=== PATIENT | female | born 1995 | race Caucasian/White ===

== ENCOUNTER 2016-09-12 21:44 | Emergency (ER) | payer BC, OTHER ==
[~2016-09-12] VITALS: Ht 162.6 cm; Wt 70.0 kg
[~2016-09-12 21:44] MED LIST: MULT-506 PO
[2016-09-12 21:48] VITALS: TEMP 36.5; Ht 162.6 cm; Wt 70.0 kg
[2016-09-12] MEDS ORDERED: PROCHLORPERAZINE 5 MG/ML 2 ML VIAL IV STA (23:11)
[2016-09-12] MEDS ORDERED: KETOROLAC TROMETHAMINE 30 MG/ML VIAL IV STA (23:11)
[2016-09-12] MEDS ORDERED: DiphenhydrAMINE HCL 50 MG/ML VIAL IV STA (23:11)
[2016-09-12] MEDS ORDERED: SODIUM CHLORIDE 0.9% 1000ML 1,000 ML IV ONE (23:15)
--- NOTE | 2016-09-12 23:21 | EMERGENCY ROOM VISIT NOTE ---
History Report prepared by Alesha: Brigette Lopez Under the Supervision of: Dr. Reese Rosales M.D. First contact with patient: 23:07 Chief Complaint: HEADACHE Stated Complaint: MAJOR MIGRAINE TO NECK History of Present Illness The patient is a 20 year old female who presents to the Emergency Room with complaints of a worsening headache for the past 6 hours. She has been experiencing headaches like this for the past 10 months, since the of her youngest child. She goes to a chiropractor 3 times/week and states that this is the only thing that keeps her headaches under control. The patient missed her chiropractor appointment today and thinks that is what triggered her headache. Her pain is mostly up the back of her neck and into the base of her skull. She has not taken any medication for pain because she is currently . Light exacerbates her pain. The patient denies fever, chills, abdominal pain, diarrhea, and urinary symptoms. She has nausea and had 1 episode of vomiting [employer]. The patient rates her current pain as a 10/10 in severity. Source of History: patient Onset: 6 hours [employer] Position: head Symptom Intensity: 10/10 Timing: worsening Modifying Factors (Worsening): other (light) Modifying Factors (Relieving): other (chiropractor) Associated Symptoms: + nausea, + neck pain, + vomiting, No abdominal pain, No chills, No fevers, No urinary symptoms Review of Systems All systems have been listed, reviewed, and are negative other than those previously mentioned. Please see Additional Medical History Sheet. Past Medical & Surgical Medical Problems: (1) Abrasion of knee, left (2) FX MID/PRX PHAL, HAND-CL (3) MRSA (methicillin resistant staph aureus) culture positive (4) (5) Rash and nonspecific skin eruption Family History No pertinent history stated. Social History Smoking Status: Current Every Day Smoker Alcohol Use: none Drug Use: none Marital Status: single Housing Status: lives with family Occupation Status: student Current/Historical Medications No Active Prescriptions or Reported Meds Allergies Coded Allergies: Latex (Verified Allergy, Mild, Rash, 09/12/16) Povidone Iodine (Verified Allergy, Mild, rash, swelling, red, 09/12/16) Shellfish (Unverified Allergy, Unknown, UNKNOWN, 09/12/16) Shellfish Allergy (Unverified Allergy, Unknown, UNKNOWN, 09/12/16) Physical Exam Vital Signs Date Time Temp Pulse Resp B/P Pulse Ox O2 Delivery O2 Flow Rate FiO2 09/12/16 23:34 53 20 112/71 100 Room Air 09/12/16 21:48 36.5 74 18 135/84 100 Room Air Physical Exam GENERAL: Patient awake, alert, oriented x 3. Patient follows commands. Patient does not appear toxic. Patient is adequately hydrated and well- nourished. The patient is in moderate to severe distress, photophobic. SKIN: No erythema, pallor, cyanosis or rash HEENT: Normal head, the patient has some tenderness to the base of her skull, photophobia, pupils equal, reactive to light and accommodation. Ears normal. Oral cavity and posterior pharynx appear normal. Neck: Without adenopathy, no neck vein distention. LUNGS: Clear to auscultation. No wheezes, no rales, no rhonchi. HEART: No murmurs. No gallops. No rubs ABDOMEN: Soft, nontender. EXTREMITIES: No signs of trauma or infection. NEUROLOGIC: Cranial nerves II-XII within normal limits. No gross motor sensory function deficits. Medical Decision & Procedures Medications Administered Medications (Trade) Dose Ordered Sig/Jennifer Route Start Time Stop Time Status Last Admin Dose Admin Ketorolac Tromethamine (Toradol Inj) 30 mg NOW STAT IV 09/12/16 23:11 09/12/16 23:14 DC 09/12/16 23:26 30 MG Diphenhydramine HCl (Benadryl Inj) 25 mg NOW STAT IV 09/12/16 23:11 09/12/16 23:14 DC 09/12/16 23:27 25 MG Prochlorperazine Edisylate 10 mg 10 mg NOW STAT IV 09/12/16 23:11 09/12/16 23:14 DC 09/12/16 23:28 10 MG Sodium Chloride (Nss 1000ml) 1,000 ml @ 1,000 mls/hr Q1H ONCE IV 09/12/16 23:15 09/13/16 00:14 DC 09/12/16 23:26 1,000 MLS/HR ED Course 2307: Past medical records reviewed. The patient was evaluated in room C12B. A complete history and physical examination was performed. 2311: Compazine 10 mg IV, Benadryl 25 mg IV, Toradol 30 mg IV 2315: NSS 1000 ml @ 1000 mls/hr IV 0032: I reassessed the patient at this time. She is feeling better and resting comfortably. I discussed the results and treatment plan with the patient. I answered all pertaining questions that she had. She expressed understanding and verbalized agreement. The patient will be discharged home. Medical Decision Differential diagnoses includes migraine headache, cluster headache, occipital headache, tension headache, encephalitis, meningitis. The patient's pain is most consistent with a tension headache. Patient received IV Toradol, Benadryl and Compazine plus IV fluids. Patient did have an episode of akathisia. That resolved on its own. Prior to discharge patient headache had almost completely resolved. The patient was encouraged to go home and go to sleep. Impression Primary Impression: Tension headache Additional Impression: Akathisia Scribe Attestation The scribe's documentation has been prepared under my direction and personally reviewed by me in its entirety. I confirm that the note above accurately reflects all work, treatment, procedures, and medical decision making performed by me. Departure Information Dispostion Home / Self-Care Prescriptions No Active Prescriptions or Reported Meds Referrals Carlos Osorio M.D. (PCP) Forms HOME CARE DOCUMENTATION FORM, IMPORTANT VISIT INFORMATION Patient Instructions ED Headache Tension, My [facility] Additional Instructions Follow-up with your family physician. Problem Qualifiers
[2016-09-13 01:08] VITALS: BP 107/67; PULSE 68; O2SAT 100
== END 2016-09-13 01:10 | disposition home or self-care (01) ==
LOC: C.EDB 21:45 → C.EDC 09-13 01:10
DX: G44.209 Tension-type headache, unspecified, not intractable (principal); G25.71 Drug induced akathisia; F17.200 Nicotine dependence, unspecified, uncomplicated; Z87.81 Personal history of (healed) traumatic fracture; Z86.14 Personal history of Methicillin resistant Staphylococcus aureus infection; Z91.040 Latex allergy status; Z91.018 Allergy to other foods; Z91.09 Other allergy status, other than to drugs and biological substances

== ENCOUNTER 2017-02-03 15:15 | Emergency (ER) | payer OTHER ==
[~2017-02-03] VITALS: Ht 162.6 cm; Wt 64.4 kg
[2017-02-03 15:25] VITALS: TEMP 37.2; Ht 162.6 cm; Wt 64.4 kg
--- NOTE | 2017-02-03 15:51 | DIAGNOSTIC IMAGING REPORT ---
L ANKLE MIN 3 VIEWS ROUTINE CLINICAL HISTORY: in d pod waiting room pain COMPARISON: None. DISCUSSION: The bones and joint spaces appear intact. There is no evidence of fracture, dislocation or bony disease. Mild degenerative change subtalar joint. IMPRESSION: Mild degenerative change. No acute bony abnormality. The above report was generated using voice recognition software. It may contain grammatical, syntax or spelling errors. Electronically signed by: Robert Sherman M.D. 02/03/2017 3:49 PM Dictated Date/Time: 02/03/2017 3:49 PM
[2017-02-03] MEDS ORDERED: TYLOTC500 PO (16:03)
[2017-02-03] MEDS ORDERED: HYDR-5688 PO (16:37)
--- NOTE | 2017-02-03 16:42 | EMERGENCY ROOM VISIT NOTE ---
History First contact with patient: 16:01 Chief Complaint: ANKLE PAIN Stated Complaint: SEVERE PAIN IN LEFT ANKLE History of Present Illness The patient is a 21 year old female who presents to the Emergency Room with complaints of left ankle pain for 4 days. The patient is having difficulty putting weight on the foot. She denies any significant injury. The pain is on the lateral aspect of the ankle over the lateral malleolus. she has tried Tylenol with minimal relief of the pain. She does report a history of stress fractures of the outside of her ankle. 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 Review of Systems 6 system review negative. Please see pertinent positives in the history of present illness section. Past Medical/Surgical History Medical Problems: (1) Abrasion of knee, left (2) FX MID/PRX PHAL, HAND-CL (3) MRSA (methicillin resistant staph aureus) culture positive (4) (5) Rash and nonspecific skin eruption Social History Smoking Status: Current Every Day Smoker Alcohol Use: none Drug Use: none Marital Status: single Housing Status: lives with family Occupation Status: student Current/Historical Medications Scheduled PRN Acetaminophen (Tylenol), 1,000 MG PO Q6 PRN for Pain Hydrocodone/Acetaminophen 5MG/325MG (Hilbert 5MG/325MG), 1-2 TABLET PO Q4H PRN for Pain Physical Exam Vital Signs Date Time Temp Pulse Resp B/P (MAP) Pulse Ox O2 Delivery O2 Flow Rate FiO2 02/03/17 17:09 90 18 120/68 100 02/03/17 15:25 37.2 90 18 121/73 98 Room Air Physical Exam VITALS: Vitals are noted on the nurse's note and reviewed by myself. Vital signs stable. GENERAL: 21-year-old female, in no acute distress, nondiaphoretic, well- developed well-nourished. SKIN: The skin was without rashes, erythema, edema, or bruising. HEAD: Normocephalic atraumatic. MUSCULOSKELETAL: LLE: Tenderness to palpation over the lateral malleolus. No tenderness elicited over the proximal tibia or fibula. No tenderness over the fifth metatarsal. Capillary refills less than 2 seconds. Flexion and extension of the foot are intact, but this elicits pain. NEURO: Patient was alert and oriented to person place and time. Normal sensation to touch. No focal neurological deficits. Medical Decision & Procedures ER Provider Diagnostic Interpretation: L ANKLE MIN 3 VIEWS ROUTINE CLINICAL HISTORY: in d pod waiting room pain COMPARISON: None. DISCUSSION: The bones and joint spaces appear intact. There is no evidence of fracture, dislocation or bony disease. Mild degenerative change subtalar joint. IMPRESSION: Mild degenerative change. No acute bony abnormality. The above report was generated using voice recognition software. It may contain grammatical, syntax or spelling errors. Electronically signed by: Robert Sherman M.D. 02/03/2017 3:49 PM Dictated Date/Time: 02/03/2017 3:49 PM The status of this report is Signed. Draft = Not yet reviewed or approved by Radiologist. ED Course The patient was seen and examined Imaging was performed and reviewed. The findings were discussed with the patient. She was put in a gel ankle splint and instructed on these of crutches Discharge instructions were reviewed, and she was discharged in good condition Medical Decision Differential diagnosis: Ankle sprain, fracture This patient is a 21-year-old female that presents emergency department complaining of significant pain over the lateral aspect of the ankle without any significant injury. 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 She has had numerous stress fractures in the past without any significant injury. X-rays did not show any signs of fracture. She was given a gel ankle splint and crutches. She was instructed to have minimal weightbearing on the foot until she follows up with orthopedics. She was given the name of Dr. Venegas, whom she has seen in the past for follow-up. She was given a short prescription for narcotics instructed to ice and elevate the ankle. She will return to the emergency department with any new or worsening symptoms. This chart was completed in part utilizing [employer] Voice Recognition software. Attempts were made to minimize the grammatical errors, random word insertions, pronoun errors and incomplete sentences. Any formal questions or concerns about the content, text or information contained within the body of this dictation should be directly addressed to the provider for clarification. Impression Primary Impression: Left ankle pain Departure Information Dispostion Home / Self-Care Condition GOOD Prescriptions Hydrocodone/Acetaminophen 5MG/325MG (Hilbert 5MG/325MG) Tab 1-2 TABLET PO Q4H Y for Pain, #15 TAB For Initial Treatment Prov: Ayanna Mendoza PA-C 02/03/17 Referrals Carlos Osorio M.D. (PCP) Anuj Venegas D.O. Patient Instructions My [facility] Additional Instructions You were evaluated in the emergency department for ankle pain. An x-ray did not show any signs of fracture. You may need further imaging of the ankle if the pain persists. Ibuprofen 600 mg every 6 hours Hilbert 1-2 tabs every 4 hours for severe pain. Do not drink alcohol or drive while taking this medication. This may be taken with ibuprofen, but avoid Tylenol. Please keep the gel ankle splint in place. Use crutches. Minimal weightbearing until seen by orthopedics. Ice for 20 minute intervals. Elevate as much as possible. Please call the orthopedic doctor tomorrow for a follow-up appointment. Please return to the emergency department with any new or worsening symptoms.
[2017-02-03 17:09] VITALS: BP 120/68; PULSE 90; O2SAT 100
== END 2017-02-03 17:10 | disposition home or self-care (01) ==
LOC: C.EDB 15:16 → C.EDD 17:10
DX: M25.572 Pain in left ankle and joints of left foot (principal); F17.200 Nicotine dependence, unspecified, uncomplicated; Z87.312 Personal history of (healed) stress fracture